=== PATIENT | male | born 1965 | race African-American/Black ===

== ENCOUNTER → 2020-02-09 08:56 | Emergency (ER) | payer OTHER, SELFPAY ==
[~2020-02-09 08:56] MED LIST: Ketorolac Tromethamine 30 MG/ML VIAL ONE
== END | disposition home or self-care (01) ==
LOC: ERS 08:56
DX: M54.41 Lumbago with sciatica, right side (principal); E78.00 Pure hypercholesterolemia, unspecified; E11.9 Type 2 diabetes mellitus without complications; F43.10 Post-traumatic stress disorder, unspecified; Z79.4 Long term (current) use of insulin
CPT/HCPCS: 96372; 99283; J1885

== ENCOUNTER 2021-07-17 08:21 | Outpatient (CLI) | payer OTHER ==
[2021-07-17 23:31] LABS: SARS-CoV-2 PCR by NAA Not Detected (NotDetected)
== END 2021-07-17 08:22 | disposition home or self-care (01) ==
LOC: LABBT 08:21
PROVIDERS: ATTEND Surgery
DX: Z01.818 Encounter for other preprocedural examination (principal); K42.9 Umbilical hernia without obstruction or gangrene; Z20.822 Contact with and (suspected) exposure to COVID-19
CPT/HCPCS: 93005; 93010; U0003; U0005

== ENCOUNTER 2021-07-21 05:32 | Day surgery (SDC) | payer OTHER ==
[2021-07-17 13:45] VITALS: BMI 47.3
[2021-07-21] MEDS ORDERED: Fentanyl 250 MCG/5 ML VIAL ONE (06:38)
[2021-07-21] MEDS ORDERED: Lidocaine 2% Jelly 5 ML TUBE ONE (06:38)
[2021-07-21] MEDS ORDERED: EPINEPHrine 1 MG/ML AMP ONE (06:40)
[2021-07-21] MEDS ORDERED: Bupivacaine 0.25% HCL 30 ML VIAL ONE (06:40)
[2021-07-21] MEDS ORDERED: Succinylcholine 200 MG/10 ml SYRINGE FS ONE (07:30)
[2021-07-21] MEDS ORDERED: ePHEDrine 50 MG/ML VIAL ONE (07:30)
[2021-07-21] MEDS ORDERED: Ketorolac Tromethamine 30 MG/ML VIAL ONE (07:30)
[2021-07-21] MEDS ORDERED: Rocuronium Bromide 10 MG/ML (10ML VIAL) ONE (07:30)
[2021-07-21] MEDS ORDERED: diphenhydrAMINE 50 MG/ML VIAL ONE (07:30)
[2021-07-21] MEDS ORDERED: PROPOFOL 200 MG/20 ML VIAL ONE (07:30)
[2021-07-21] MEDS ORDERED: Calcium Chloride 1 GM/10 ML Abboject SYRINGE ONE (07:30)
[2021-07-21] MEDS ORDERED: Ondansetron PF 4 MG/2 ML Vial ONE (07:30)
[2021-07-21] MEDS ORDERED: Lidocaine 1% PF 5 ML VIAL ONE (07:30)
[2021-07-21] MEDS ORDERED: Glycopyrrolate 0.2 MG/ML 5 ML SYRINGE ONE (07:30)
[2021-07-21] MEDS ORDERED: PHENYLEPHRINE-NS 100 MCG/ML 10 ML SYRINGE ONE (07:30)
[2021-07-21] MEDS ORDERED: SUGAMMADEX SODIUM 200 MG/2 ML VIAL ONE (08:23)
== END 2021-07-21 11:53 | disposition home or self-care (01) ==
LOC: SDC 05:32
PROVIDERS: ATTEND Surgery
PROC: 0DP64CZ Removal of Extraluminal Device from Stomach, Percutaneous Endoscopic Approach (ICD-10-PCS; principal; 2021-07-21)
DX: K95.09 Other complications of gastric band procedure (principal); K21.9 Gastro-esophageal reflux disease without esophagitis; I10 Essential (primary) hypertension; E78.5 Hyperlipidemia, unspecified; E11.9 Type 2 diabetes mellitus without complications; E88.81 Metabolic syndrome and other insulin resistance; Z79.82 Long term (current) use of aspirin; Z79.84 Long term (current) use of oral hypoglycemic drugs; Z79.899 Other long term (current) drug therapy; Z91.048 Other nonmedicinal substance allergy status; Y73.3 Surgical instruments, materials and gastroenterology and urology devices (including sutures) associated with adverse incidents
CPT/HCPCS: J0171; J0690; J1200; J1885; J2405; J2704; J3010; J3490; S0020

== ENCOUNTER 2023-08-09 18:08 | Emergency (ER) | payer OTHER ==
[2023-08-09 20:13] LABS: Bacteria/HPF None Seen HPF (None Seen); Bilirubin Negative (Negative); Blood, Urine Negative (Negative); CAUTI Indications for Culture Dysuria,urgency,freq; Calcium Oxalate Crystals Rare HPF (None Seen); Clarity Clear (Clear); Glucose, Urine (Dipstick) Greater than 1000 mg/dL (Negative); Ketone, Urine Negative (Negative); Leukocyte Negative Leu/uL (Negative); Nitrite Negative (Negative); Protein, Urine (Dipstick) 10 mg/dL (Neg-Trace); RBC/HPF 0-3 HPF (0-3); Specific Gravity, Urine 1.038 (1.002-1.036); Squamous Epithelial 0-3 HPF (0-3); Urobilinogen Normal mg/dL (Less than 2); WBC/HPF 0-3 HPF (0-3); pH, Urine 5.5 (5.0-9.0)
[2023-08-09 20:15] LABS: Urine Culture Reflex No No
[2023-08-09 20:23] LABS: #Basophils 0.1 thou/uL (0.0-0.2); #Eosinphils 0.4 thou/uL (0.0-0.7); #Monocytes 1.4 thou/uL (0.11-0.59); #Neutrophils 7.8 thou/uL (1.40-6.50); %Basophils 0.4 % (0.0-1.0); %Eosinophils 3.2 % (0.0-10.0); %Lymphocytes 25.9 % (21.0-51.0); %Monocytes 10.6 % (0.0-10.0); %Neutrophils 59.2 % (42.0-75.0); Hematocrit 48.8 % (42.0-52.0); Mean Corpuscular HGB CONC 32.8 g/dL (32.0-36.0); Mean Corpuscular Volume 85.5 fl (78.0-98.0); Platelet Count 239 10x3/uL (130-400); RBC Distribution Width 13.2 % (11.5-14.5); Red Blood Cell (RBC) Count 5.71 mill/uL (4.70-6.10); White Blood Cell (WBC) Count 13.2 10x3/uL (4.8-10.8)
[2023-08-09] MEDS ORDERED: Dicyclomine 20 MG TAB ONE (20:25)
[2023-08-09] MEDS ORDERED: Ondansetron PF 4 MG/2 ML Vial ONE (20:25)
[2023-08-09 20:50] LABS: Troponin I Less than 0.010 ng/mL (< 0.028)
[2023-08-09 20:59] LABS: ALT (SGPT) 45 U/L (8-55); AST (SGOT) 34 U/L (5-34); Albumin 3.7 g/dL (3.5-5.0); Alkaline Phosphatase 51 U/L (40-110); Anion Gap 11 mmol/L (10-20); BUN (Urea Nitrogen) 12 mg/dL (8.4-25.7); Bilirubin, Total 0.4 mg/dL (0.2-1.2); Calc. Creatinine Clearance 0 mL/min (70-130); Calcium 8.8 mg/dL (7.8-10.44); Carbon Dioxide 26 mmol/L (22-29); Chloride 104 mmol/L (98-107); Estimated GFR 76; Glucose 116 mg/dL (70-105); Protein, Total 6.7 g/dL (6.0-8.3); Sodium 137 mmol/L (136-145)
== END 2023-08-09 22:28 | disposition home or self-care (01) ==
LOC: ERS 18:08
DX: R19.7 Diarrhea, unspecified (principal); R07.9 Chest pain, unspecified; E78.00 Pure hypercholesterolemia, unspecified; E11.9 Type 2 diabetes mellitus without complications; I10 Essential (primary) hypertension; Z79.899 Other long term (current) drug therapy; Z79.84 Long term (current) use of oral hypoglycemic drugs
CPT/HCPCS: 36415; 71045; 80053; 81001; 83735; 83880; 84484; 85025; 93005; 96361; 96374; J2405

== ENCOUNTER 2023-09-06 10:06 | Outpatient (CLI) | payer OTHER | END 2023-09-06 10:07 | disposition home or self-care (01) | LOC: BICRAD 10:06 | PROVIDERS: ATTEND Internal Medicine | DX: Z02.71 Encounter for disability determination (principal) | CPT/HCPCS: 71046 ==

== ENCOUNTER 2023-11-10 10:37 | Emergency (ER) | payer OTHER ==
[2023-11-10] MEDS ORDERED: Ipratropium/Albuterol 3 ML NEB ONE ×2 (11:03→14:10)
[2023-11-10 13:58] LABS: #Basophils 0.1 thou/uL (0.0-0.2); #Monocytes 1.2 thou/uL (0.11-0.59); #Neutrophils 8.6 thou/uL (1.40-6.50); %Basophils 0.7 % (0.0-1.0); %Eosinophils 6.6 % (0.0-10.0); %Monocytes 7.9 % (0.0-10.0); %Neutrophils 58.6 % (42.0-75.0); Hematocrit 49.2 % (42.0-52.0); Hemoglobin 16.2 g/dL (14.0-18.0); Mean Corpuscular HGB CONC 32.9 g/dL (32.0-36.0); Mean Corpuscular Hemoglobin 28.1 pg (27.0-31.0); Mean Corpuscular Volume 85.3 fl (78.0-98.0); Mean Platelet Volume 10.7 fL (7.4-10.4); Platelet Count 281 10x3/uL (130-400); RBC Distribution Width 13.7 % (11.5-14.5); Red Blood Cell (RBC) Count 5.77 mill/uL (4.70-6.10); White Blood Cell (WBC) Count 14.7 10x3/uL (4.8-10.8)
[2023-11-10 14:17] LABS: ALT (SGPT) 52 U/L (8-55); AST (SGOT) 26 U/L (5-34); Albumin 3.9 g/dL (3.5-5.0); Alkaline Phosphatase 60 U/L (40-110); Anion Gap 13 mmol/L (10-20); BUN (Urea Nitrogen) 18 mg/dL (8.4-25.7); Bilirubin, Total 0.3 mg/dL (0.2-1.2); Calc. Creatinine Clearance 0 mL/min (70-130); Carbon Dioxide 26 mmol/L (22-29); Chloride 107 mmol/L (98-107); Estimated GFR 74; Globulin 3.4 g/dL (2.4-3.5); Glucose 113 mg/dL (70-105); Potassium 3.9 mmol/L (3.5-5.1); Protein, Total 7.3 g/dL (6.0-8.3); Sodium 142 mmol/L (136-145)
== END 2023-11-10 15:46 | disposition home or self-care (01) ==
LOC: ERS 10:37
DX: J18.9 Pneumonia, unspecified organism (principal); J98.01 Acute bronchospasm; E11.9 Type 2 diabetes mellitus without complications; I10 Essential (primary) hypertension; Z79.84 Long term (current) use of oral hypoglycemic drugs
CPT/HCPCS: 36415; 71045; 80053; 83605; 85025; 85379; 93005; 94640; J7620

== ENCOUNTER 2024-10-08 09:44 | Inpatient (IN) | payer BC ==
[2024-10-08] MEDS ORDERED: Albuterol 2.5 MG (3 mL) NEB ONE ×2 (10:28→12:04)
[2024-10-08] MEDS ORDERED: Ipratropium Bromide 2.5 ml Neb ONE ×2 (10:28→12:05)
[2024-10-08] MEDS ORDERED: methylPREDNISolone Sod Succ/PF 125 MG/2 ML VIAL ONE (10:28)
[2024-10-08] MEDS ORDERED: Magnesium 2 GM/50 ML BAG (IN WATER) ONE (10:50)
[2024-10-08 10:55] LABS: #Basophils 0.11 10x3/uL (0.0-0.2); %Basophils 1.1 % (0.0-1.0); %Eosinophils 8.6 % (0.0-10.0); %Lymphocytes 28.6 % (21.0-51.0); %Monocytes 8.8 % (0.0-10.0); %Neutrophils 50.4 % (42.0-75.0); Hematocrit 50.5 % (42.0-52.0); Hemoglobin 16.6 g/dL (14.0-18.0); Mean Corpuscular HGB CONC 32.9 g/dL (32.0-36.0); Mean Corpuscular Hemoglobin 27.6 pg (27.0-31.0); Mean Platelet Volume 10.3 fL (7.4-10.4); Platelet Count 240 10x3/uL (130-400); RBC Distribution Width 14.1 % (11.5-14.5); Red Blood Cell (RBC) Count 6.01 mill/uL (4.70-6.10)
[2024-10-08 11:09] LABS: ALT (SGPT) 25 U/L (8-55); AST (SGOT) 16 U/L (5-34); Albumin 3.1 g/dL (3.5-5.0); Alkaline Phosphatase 45 U/L (40-110); Anion Gap 14 mmol/L (10-20); BUN (Urea Nitrogen) 14 mg/dL (8.4-25.7); Bilirubin, Total 0.2 mg/dL (0.2-1.2); Calc. Creatinine Clearance 0 mL/min (70-130); Calcium 8.1 mg/dL (7.8-10.44); Carbon Dioxide 23 mmol/L (22-29); Chloride 110 mmol/L (98-107); Estimated GFR 87; Globulin 2.7 g/dL (2.4-3.5); Glucose 146 mg/dL (70-105); Magnesium 1.9 mg/dL (1.6-2.6); Protein, Total 5.8 g/dL (6.0-8.3); Sodium 143 mmol/L (136-145)
[2024-10-08 11:12] LABS: Troponin I Less than 0.010 ng/mL (< 0.028)
[2024-10-08] MEDS ORDERED: Sodium Chloride 0.9% 100 ML ONE (11:30)
[2024-10-08] MEDS ORDERED: Azithromycin 500 MG VIAL ONE (11:30)
[2024-10-08] MEDS ORDERED: cefTRIAXone (ROCEPHIN) 2 GM VIAL ONE (11:30)
[2024-10-08] MEDS ORDERED: Senokot S 8.6-50 MG TAB PO PRN (13:57)
[2024-10-08] MEDS ORDERED: Ipratropium Bromide 2.5 ml Neb NEB PRN (13:57)
[2024-10-08] MEDS ORDERED: Glucagon 1 MG/ML KIT IM PRN (13:57)
[2024-10-08] MEDS ORDERED: Calcium Carbonate 500 MG ChewTAB PO PRN (13:57)
[2024-10-08] MEDS ORDERED: Ondansetron ODT 4 MG TAB PO PRN (13:57)
[2024-10-08] MEDS ORDERED: Dextrose 50% Abboject 50 ML SYRINGE SLOW IVP PRN (13:57)
[2024-10-08] MEDS ORDERED: Dextrose 5% in Water 1,000 ML IV PRN (13:57)
[2024-10-08] MEDS ORDERED: Acetaminophen 650 MG Suppository PR PRN (13:57)
[2024-10-08] MEDS ORDERED: Ondansetron PF 4 MG/2 ML Vial IVP PRN (13:57)
[2024-10-08 14:57] VITALS: BMI 43.2
[2024-10-08] MEDS: Azithromycin 500 MG in Sodium Chloride 0.9% 250 ML 250 ML IVPB SCH (15:18)
[2024-10-08] MEDS: methylPREDNISolone Sod Succ 40 MG VIAL IVP SCH (17:52)
[2024-10-08] MEDS: Ipratropium/Albuterol 3 ML NEB NEB SCH (18:45)
[2024-10-08] MEDS: QUEtiapine 200 MG TAB PO SCH (20:04)
[2024-10-08] MEDS: Mirtazapine 30 MG TAB PO SCH (20:04)
[2024-10-08] MEDS: busPIRone HCl 10 MG TAB PO SCH (20:04)
[2024-10-08] MEDS: Famotidine 20 MG TAB PO SCH (20:04)
[2024-10-08] MEDS: Atorvastatin Calcium 40 MG TAB PO SCH (20:05)
[2024-10-08] MEDS: Acetaminophen 325 MG TAB PO PRN (20:09)
[2024-10-08] MEDS: Prazosin HCl 1 MG CAP PO SCH (20:09)
[2024-10-08] MEDS: Insulin Lispro 100 UNIT/ML 10 ML VIAL SC PRN (21:19)
[2024-10-09 04:35] LABS: #Basophils 0.04 10x3/uL (0.0-0.2); #Eosinophils Less than 0.03 10x3/uL (0.0-0.7); %Basophils 0.3 % (0.0-1.0); %Lymphocytes 10.9 % (21.0-51.0); %Monocytes 3.5 % (0.0-10.0); Hematocrit 45.8 % (42.0-52.0); Hemoglobin 15.4 g/dL (14.0-18.0); Mean Corpuscular HGB CONC 33.6 g/dL (32.0-36.0); Mean Corpuscular Hemoglobin 27.9 pg (27.0-31.0); Mean Platelet Volume 10.3 fL (7.4-10.4); Platelet Count 237 10x3/uL (130-400); RBC Distribution Width 14.2 % (11.5-14.5); Red Blood Cell (RBC) Count 5.52 mill/uL (4.70-6.10)
[2024-10-09 04:54] LABS: Anion Gap 12 mmol/L (10-20); BUN (Urea Nitrogen) 16 mg/dL (8.4-25.7); Calc. Creatinine Clearance 168 mL/min (70-130); Calcium 8.1 mg/dL (7.8-10.44); Carbon Dioxide 22 mmol/L (22-29); Chloride 108 mmol/L (98-107); Estimated GFR 94; Glucose 168 mg/dL (70-105); Potassium 4.4 mmol/L (3.5-5.1); Sodium 138 mmol/L (136-145)
[2024-10-09] MEDS: Aspirin 81 mg Enteric Coated Tablet PO SCH (08:33)
[2024-10-09] MEDS: Enoxaparin 40 MG (0.4 mL) SYRINGE SC SCH (08:33)
[2024-10-09] MEDS: BuPROPion XL 150 MG ER.TAB PO SCH (08:33)
[2024-10-09] MEDS: Saccharomyces boulardii 250 MG CAP PO SCH (08:33)
[2024-10-09] MEDS: Sertraline 100 MG TAB PO SCH (08:33)
[2024-10-09] MEDS: Amlodipine 10 MG TAB PO SCH (08:33)
[2024-10-09] MEDS: cefTRIAXone\\ROCEPHIN 1 GM in Sodium Chloride 0.9% 100 ML IVPB SCH (10:29)
[2024-10-09] MEDS: Azithromycin 500 MG in Sodium Chloride 0.9% 250 ML 250 ML IVPB SCH (11:17)
[2024-10-09] MEDS: traMADol HCl 50 MG TAB PO PRN (11:18)
[2024-10-09] MEDS: Insulin Lispro 100 UNIT/ML 10 ML VIAL SC PRN (11:27)
[2024-10-10 06:12] LABS: #Basophils 0.05 10x3/uL (0.0-0.2); #Eosinophils Less than 0.03 10x3/uL (0.0-0.7); %Basophils 0.3 % (0.0-1.0); %Lymphocytes 9.5 % (21.0-51.0); %Monocytes 5.8 % (0.0-10.0); %Neutrophils 80.4 % (42.0-75.0); Hematocrit 43.1 % (42.0-52.0); Hemoglobin 14.3 g/dL (14.0-18.0); Mean Corpuscular HGB CONC 33.2 g/dL (32.0-36.0); Mean Corpuscular Hemoglobin 27.7 pg (27.0-31.0); Mean Corpuscular Volume 83.4 fL (78.0-98.0); Mean Platelet Volume 10.2 fL (7.4-10.4); Platelet Count 219 10x3/uL (130-400); RBC Distribution Width 14.4 % (11.5-14.5); Red Blood Cell (RBC) Count 5.17 mill/uL (4.70-6.10)
[2024-10-10 06:32] LABS: Anion Gap 10 mmol/L (10-20); BUN (Urea Nitrogen) 16 mg/dL (8.4-25.7); Calc. Creatinine Clearance 171 mL/min (70-130); Carbon Dioxide 26 mmol/L (22-29); Chloride 107 mmol/L (98-107); Estimated GFR 96; Glucose 180 mg/dL (70-105); Potassium 4.2 mmol/L (3.5-5.1); Sodium 139 mmol/L (136-145)
[2024-10-10] MEDS: FLU (Fluarix Triv) TS24-25(6MOS UP)/PF 45 MCG/0.5 ML Syringe IM ONE (08:43)
[2024-10-10] MEDS: Benzonatate 100 MG CAP PO PRN (20:13)
[2024-10-11 12:01] VITALS: BP 147/84; TEMP 98.5
[2024-10-11] MEDS ORDERED: methylPREDNISolone Sod Succ 40 MG VIAL IVP SCH (18:00)
== END 2024-10-11 15:05 | disposition home or self-care (01) | DRG 193 ==
LOC: ERS 09:44 → T4-B 13:15 → OBSVTOIN 10-09 10:28
PROVIDERS: ADMIT Family Medicine; ATTEND Hospitalist
DX: J18.9 Pneumonia, unspecified organism (principal); J96.01 Acute respiratory failure with hypoxia; I50.32 Chronic diastolic (congestive) heart failure; J45.901 Unspecified asthma with (acute) exacerbation; Z68.41 Body mass index [BMI] 40.0-44.9, adult; G47.33 Obstructive sleep apnea (adult) (pediatric); E66.01 Morbid (severe) obesity due to excess calories; E11.9 Type 2 diabetes mellitus without complications; I11.0 Hypertensive heart disease with heart failure; N40.0 Benign prostatic hyperplasia without lower urinary tract symptoms; F43.10 Post-traumatic stress disorder, unspecified; Z91.09 Other allergy status, other than to drugs and biological substances; E78.5 Hyperlipidemia, unspecified; Z23 Encounter for immunization; F41.9 Anxiety disorder, unspecified; F32.A Depression, unspecified; Z99.89 Dependence on other enabling machines and devices; Z79.899 Other long term (current) drug therapy; Z79.84 Long term (current) use of oral hypoglycemic drugs
CPT/HCPCS: 36415; 36416; 71046; 80048; 80053; 83605; 83735; 83880; 84484; 85025; 87040; 87428; 90656; 93005; 94640; 94644; 96365; 96367; 96375; 96376; G0378; J0456; J0696; J1815; J2919; J3475; J7050; J7611; J7620; J7644

== ENCOUNTER 2025-07-15 20:45 | Emergency (ER) | payer BC, MEDICARE ==
[2025-07-15 21:19] LABS: #Basophils 0.06 10x3/uL (0.0-0.2); #Eosinophils 0.54 10x3/uL (0.0-0.7); #Monocytes 0.95 10x3/uL (0.11-0.59); #Neutrophils 6.14 10x3/uL (1.40-6.50); %Basophils 0.6 % (0.0-1.0); %Eosinophils 5.5 % (0.0-10.0); %Lymphocytes 21.4 % (21.0-51.0); %Monocytes 9.6 % (0.0-10.0); %Neutrophils 62.1 % (42.0-75.0); Hematocrit 45.5 % (42.0-52.0); Hemoglobin 14.7 g/dL (14.0-18.0); Mean Corpuscular Hemoglobin 27.6 pg (27.0-31.0); Mean Corpuscular Volume 85.4 fL (78.0-98.0); Platelet Count 211 10x3/uL (130-400); Red Blood Cell (RBC) Count 5.33 mill/uL (4.70-6.10); White Blood Cell (WBC) Count 9.88 10x3/uL (4.8-10.8)
[2025-07-15 21:32] LABS: ALT (SGPT) 51 U/L (Less than 45); AST (SGOT) 33 U/L (11-34); Albumin 3.4 g/dL (3.1-4.5); Alkaline Phosphatase 57 U/L (40-110); Anion Gap 10 mmol/L (10-20); BUN (Urea Nitrogen) 11 mg/dL (8.4-25.7); Bilirubin, Total 0.3 mg/dL (0.3-1.2); Calc. Creatinine Clearance 0 mL/min (70-130); Calcium 8.5 mg/dL (7.8-10.44); Carbon Dioxide 25 mmol/L (22-29); Chloride 112 mmol/L (98-107); Globulin 2.7 g/dL (2.4-3.5); Glucose 140 mg/dL (70-105); Potassium 3.7 mmol/L (3.5-5.1); Sodium 143 mmol/L (136-145)
[2025-07-15] MEDS ORDERED: predniSONE 20 MG TAB ONE (23:16)
== END 2025-07-15 23:56 | disposition home or self-care (01) ==
LOC: ERS 20:45
DX: J45.901 Unspecified asthma with (acute) exacerbation (principal); I10 Essential (primary) hypertension; E11.9 Type 2 diabetes mellitus without complications
CPT/HCPCS: 71045; 80053; 83880; 84484; 85025; 93005; J7512; J7620